=== PATIENT | male | born 2000 | race Two or more races ===

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

== ENCOUNTER 2025-01-14 13:13 | Emergency (ER) | payer MEDICAID ==
[~2025-01-14] VITALS: Ht 182.9 cm; Wt 126.0 kg
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
[2025-01-14] MEDS: IBUPROFEN 600 MG TAB PO ONE (14:54)
--- NOTE | 2025-01-14 15:01 | DVH ---
CLINICAL INDICATION: fall TECHNIQUE: 3 radiographic views of the right femur were obtained. Comparison: None FINDINGS/IMPRESSION: There is no evidence of acute fracture or dislocation. The visualized joint space is well maintained. The alignment is anatomical. There is no radiopaque foreign body. HS:Y
--- NOTE | 2025-01-14 15:02 | DVH ---
CT HEAD WITHOUT CONTRAST INDICATION: fall COMPARISON: CT HEAD WITHOUT CONTRAST on DOS: 01/18/23 TECHNIQUE: CT of the head without intravenous contrast. RADIATION DOSE: CTDIvol: 60.65 mGy, DLP: 1093.45 mGy*cm FINDINGS: There is no evidence of acute intracranial hemorrhage, extra-axial collection, mass effect, midline s hift, herniation or hydrocephalus. The ventricles, sulci and cisterns are age appropriate. The perez -white differentiation is intact. The visualized paranasal sinuses and mastoid air cells are clear. The surrounding soft tissues and osseous structures are unremarkable. IMPRESSION: 1. No evidence of acute intracranial hemorrhage, mass effect or hydrocephalus.
--- NOTE | 2025-01-14 15:04 | DVH ---
CLINICAL INDICATION: fall TECHNIQUE: 2-view XY R KNEE 2V XRAY Comparison: None FINDINGS/IMPRESSION: : There is no evidence of acute fracture or dislocation. Soft tissues are unremarkable. Mild joint effusion
[2025-01-14] MEDS ORDERED: IBU600T PO (15:12)
[2025-01-14 15:40] VITALS: BP 146/98; PULSE 68; RESP 16; TEMP 99; O2SAT 98
== END 2025-01-14 15:46 | disposition home or self-care (01) ==
LOC: ER 13:13
DX: S70.11XA Contusion of right thigh, initial encounter (principal); R51.9 Headache, unspecified; I10 Essential (primary) hypertension; W18.39XA Other fall on same level, initial encounter; Y93.55 Activity, bike riding; Y92.488 Other paved roadways as the place of occurrence of the external cause; Y99.8 Other external cause status
CPT/HCPCS: 70450; 73560